=== PATIENT | male | born 1945 | race Caucasian/White ===

== ENCOUNTER 2017-06-01 11:05 | Outpatient (CLI) | payer OTHER | END 2017-06-01 15:07 | disposition home or self-care (01) | LOC: RAD 11:05 | DX: M12.862 Other specific arthropathies, not elsewhere classified, left knee (principal); M12.861 Other specific arthropathies, not elsewhere classified, right knee; M17.0 Bilateral primary osteoarthritis of knee ==

== ENCOUNTER 2017-06-03 09:27 | Outpatient (CLI) | payer OTHER | END 2017-06-03 09:39 | disposition home or self-care (01) | LOC: SONOGRAMA 09:27 | DX: M12.862 Other specific arthropathies, not elsewhere classified, left knee (principal); M12.861 Other specific arthropathies, not elsewhere classified, right knee; M17.0 Bilateral primary osteoarthritis of knee ==

== ENCOUNTER 2017-08-09 09:49 | Outpatient (CLI) | payer OTHER | END 2017-08-09 09:57 | disposition home or self-care (01) | LOC: RAD 09:49 | DX: M46.47 Discitis, unspecified, lumbosacral region (principal) ==

== ENCOUNTER 2018-01-23 10:23 | Outpatient (CLI) | payer OTHER | END 2018-01-23 15:00 | disposition home or self-care (01) | LOC: RAD 10:23 | DX: M12.862 Other specific arthropathies, not elsewhere classified, left knee (principal); M17.12 Unilateral primary osteoarthritis, left knee ==

== ENCOUNTER 2019-01-11 07:11 | Outpatient (CLI) | payer OTHER | END 2019-01-11 08:34 | disposition home or self-care (01) | LOC: TOM 07:11 | DX: R10.9 Unspecified abdominal pain (principal); M12.9 Arthropathy, unspecified | CPT/HCPCS: 73522; 74177; Q9965 ==

== ENCOUNTER 2019-05-27 10:27 | Emergency (ER) | payer OTHER ==
[~2019-05-27] VITALS: Ht 167.6 cm; Wt 83.0 kg
== END 2019-05-27 13:53 | disposition home or self-care (01) ==
LOC: ER 10:27
DX: I10 Essential (primary) hypertension (principal); R42 Dizziness and giddiness